=== PATIENT | female | born 1990 | race African-American/Black ===

== ENCOUNTER 2016-06-16 20:13 | Emergency (ER) | payer OTHER ==
[2016-06-16 20:52] LABS: INFLUENZA A SCREEN NEGATIVE (NEGATIVE); INFLUENZA B SCREEN NEGATIVE (NEGATIVE)
== END 2016-06-16 20:56 | disposition home or self-care (01) ==
LOC: ER 20:13
PROVIDERS: Specialist
DX: J02.9 Acute pharyngitis, unspecified (principal); J40 Bronchitis, not specified as acute or chronic
CPT/HCPCS: 87804; 99284